=== PATIENT | male | born 1985 | race Caucasian/White ===

== ENCOUNTER 2020-10-28 05:01 | Emergency (ER) | payer OTHER, SELFPAY ==
--- NOTE | ~2020-10-28 | CT_ITS ---
EXAMINATION: CTA chest PE protocol DATE: 10/28/2020 07:30 INDICATION: Left chest pain. Hemoptysis. TECHNIQUE: Computed tomography angiography (CTA) of the chest was performed with 100 mL Omnipaque-350 intravenous contrast timed to evaluate the pulmonary arteries. Coronal maximum intensity projection 3D-reconstructions were created by the technologist. Automated exposure control and iterative reconst ruction technique were employed. The dose-length product was 387.55 mGy-cm. COMPARISON: Chest CT 03/20/2012 FINDINGS: There is mild emphysema. There is mild scarring at the lung apices. There is mild atelectas is bilaterally. There is a 6 mm nodule at minor fissure, likely benign. No pleural effusion. The hear t size is normal. No pericardial effusion. There is no pulmonary embolus. Calcified bilateral hilar l ymph nodes are consistent with old granulomatous disease. There is bridging bone at most of the endpl ates in thoracic spine with ankylosis of many of the facet joints and bridging bone between many of t he spinous processes. IMPRESSION: 1. No pulmonary embolus. 2. Mild emphysema. 3. Ankylosing spondylitis. Reviewed, dictated and finalized at location A.
[2020-10-28 05:13] VITALS: BP 131/96; PULSE 78; RESP 16; O2SAT 99
--- NOTE | 2020-10-28 05:39 | ECG_ITS ---
Measurements Intervals [place] Rate: 68 P: 45 GA: 154 QRS: 24 QRSD: 105 T: 54 QT: 376 QTc: 402 Interpretive Statements SINUS RHYTHM WITH SINUS ARRHYTHMIA DELAYED PRECORDIAL R/S TRANSITION BORDERLINE ECG Electronically Signed On 10-28-2020 6:33:19 CDT by Ike Marmolejo D.O.
--- NOTE | 2020-10-28 06:14 | ED.URI ---
HPI - URI/Sore Throat General Chief Complaint: Upper Respiratory Infection <Giovanny Singh MD - Last Filed: 10/28/20 08:37> Stated Complaint: coughing up blood <Giovanny Singh MD - Last Filed: 10/28/20 08:37> Time Seen by Provider: 10/28/20 05:30 <Giovanny Singh MD - Last Filed: 10/28/20 08:37> History of Present Illness HPI Narrative: Patient presents with of coughing up blood and left-sided chest pain. Pain for the symptoms started early this morning when he woke up. His pain is achy, constant, worse with deep inspiration, does not radiate. Reports he smokes a lot and normally has a cough but he is never coughed up blood before. Denies prior history of PE denies recent hospitalizations, recent long travel. <Giovanny Singh MD - Last Filed: 10/28/20 08:37> Related Data Home Medications: Home Medications Medication Instructions Recorded Confirmed tofacitinib [Xeljanz] 5 mg PO BID 10/28/20 <Giovanny Singh MD - Last Filed: 10/28/20 08:37> Allergies/Adverse Reactions: Allergies Allergy/AdvReac Type Severity Reaction Status Date / Time No Known Allergies Allergy Verified 10/28/20 05:16 <Giovanny Singh MD - Last Filed: 10/28/20 08:37> Review of Systems Review of Systems: CONSTITUTIONAL: Denies fever, chills, or sweats. EYES: Denies visual changes, redness, or discharge. ENT: Denies rhinorrhea, congestion, sore throat, or otalgia. CARDIOVASCULAR: Denies palpitations, or edema. RESPIRATORY: Patient reports cough, shortness of breath, hemoptysis GASTROINTESTINAL: Denies abdominal pain, nausea, vomiting, or diarrhea. GENITOURINARY: Denies dysuria or hematuria. SKIN: Denies rash or itching. MUSCULOSKELETAL: Denies back pain, joint pain, or myalgia. NEUROLOGIC: Denies headache, numbness, dizziness, or weakness. PSYCHIATRIC: Denies anxiety or depression. <Giovanny Singh MD - Last Filed: 10/28/20 08:37> All systems reviewed & are unremarkable except as noted in HPI and below <Giovanny Singh MD - Last Filed: 10/28/20 08:37> Exam Narrative: GENERAL: Well-appearing, well-nourished, and in no acute distress. HEAD: Normocephalic, atraumatic. EYES: PERRLA and EOMI. ENT: Nares clear, no rhinorrhea or epistaxis. Mucous membranes moist. NECK: Supple. No masses. No JVD CHEST: Clear to auscultation. No respiratory distress. No wheezes rales or rhonchi HEART: Regular rate and rhythm. No murmur heard. Normal peripheral pulses. ABDOMEN: Soft, nontender, nondistended, normal active bowel sounds. EXTREMITIES: Normal range of motion. No edema. SKIN: Warm, dry, no rash. NEURO: No focal deficits. Alert and oriented x3. PSYCH: Normal mood and affect. <Giovanny Singh MD - Last Filed: 10/28/20 08:37> Course Reevaluation(s) Reevaluation #1: labs with mild leukocytosis ow reassuring EKG clinically unremarkable. Patient signed out to oncoming provider pending CTPA results. <Giovanny Singh MD - Last Filed: 10/28/20 08:37> Date: 10/28/20 <Giovanny Singh MD - Last Filed: 10/28/20 08:37> Time: 07:43 <Giovanny Singh MD - Last Filed: 10/28/20 08:37> Vital Signs Vital signs: Vital Signs Pulse Rate 78 10/28/20 05:13 Respiratory Rate 16 10/28/20 05:13 Blood Pressure 131/96 H 10/28/20 05:13 Pulse Oximetry 99 10/28/20 05:13 Pulse Rate 70 10/28/20 06:21 Respiratory Rate 18 10/28/20 06:21 Blood Pressure 118/87 10/28/20 06:21 Pulse Oximetry 98 10/28/20 06:21 <Giovanny Singh MD - Last Filed: 10/28/20 08:37> Vital Signs Pulse Rate 78 10/28/20 05:13 Respiratory Rate 16 10/28/20 05:13 Blood Pressure 131/96 H 10/28/20 05:13 Pulse Oximetry 99 10/28/20 05:13 Pulse Rate 70 10/28/20 06:21 Respiratory Rate 18 10/28/20 06:21 Blood Pressure 118/87 10/28/20 06:21 Pulse Oximetry 98 10/28/20 06:21 <Maycol Shepherd MD - Last Filed: 10/28/20 08:32> MDM - URI/Sore Throat Lab Data R
[2020-10-28 06:21] VITALS: BP 118/87; PULSE 70; RESP 18; O2SAT 98
[2020-10-28 06:32] LABS: Basophils Absolute Auto 0.1 K/mm3 (0.0-0.1); Basophils Percent Auto 0.8 % (0.2-1.2); Eosinophils Absolute Auto 0.6 K/mm3 (0-0.3); Eosinophils Percent Auto 4.5 % (0-4.4); Hematocrit 47.7 % (42.0-52.0); Hemoglobin 15.8 g/dL (14.0-18.0); Immature Granulocyte Absolute 0.11 K/mm3 (0.00-0.031); Immature Granulocyte Percent A 0.9 % (0-0.5); Lymphocytes Absolute Auto 3.02 K/mm3 (0.9-3.2); Lymphocytes Percent Auto 23.8 % (18.3-44.2); Mean Corpuscular HGB Conc 33.1 g/dl (32-36); Mean Corpuscular Hemoglobin 29.7 pg (26-34); Mean Corpuscular Volume 89.7 fl (80-100); Mean Platelet Volume 9.4 fl (7.4-10.4); Monocytes Percent Auto 7.9 % (2.6-8.5); Neutrophils Absolute Auto 7.9 K/mm3 (1.3-6.7); Neutrophils Percent Auto 62.1 % (45.5-73.1); Platelet Count Result 337 k/mm3 (150-375); Red Blood Count 5.32 M/mm3 (4.6-6.20); Red Cell Distribution Width 13.7 % (11.5-14.5); White Blood Count 12.7 K/mm3 (4.5-10.0)
[2020-10-28 06:43] LABS: Prothrombin Time 12.8 Seconds (11.1-14.7)
[2020-10-28 06:47] LABS: Alanine Aminotransferase 56 U/L (4-50); Albumin Level 4.4 g/dL (3.5-5.1); Alkaline Phosphatase 139 U/L (38-126); Anion Gap 11 mmol/L (8-16); Aspartate Amino Transferase 44 U/L (17-59); Bilirubin,Total 0.7 mg/dL (0.2-1.3); Blood Urea Nitrogen 6 mg/dL (9-20); Calcium 9.2 mg/dL (8.4-10.2); Carbon Dioxide 23 mmol/L (22-30); Chloride 104 mmol/L (98-107); Estimated CRCL calculation 138 ml/min; Estimated Glomerular Filt Rate > 60; Glucose 103 mg/dL (65-110); Sodium 138 mmol/L (137-145)
[2020-10-28 06:57] LABS: Troponin I < 0.012 ng/mL (0.000-0.034)
[2020-10-28 09:07] VITALS: PULSE 64; RESP 16
== END 2020-10-28 09:11 | disposition home or self-care (01) ==
PROVIDERS: Emergency Medicine; Emergency Provider Emergency Medicine
DX: R07.9 Chest pain, unspecified (principal); J43.9 Emphysema, unspecified; M45.4 Ankylosing spondylitis of thoracic region
CPT/HCPCS: 36415; 71275; 80053; 84484; 85025; 85610; 85730; 93005; 99284; Q9967

== ENCOUNTER 2021-11-17 15:35 | Observation (INO) | payer OTHER, BC, SELFPAY ==
--- NOTE | ~2021-11-17 | CT_ITS ---
EXAMINATION: CT abdomen pelvis w con DATE: 11/17/2021 17:16 INDICATION: Ulcerative colitis TECHNIQUE: Computed tomography (CT) of the abdomen and pelvis was performed with 100 mL Omnipaque-350 intravenous contrast. Automated exposure control and iterative reconstruction technique were employe d. The dose-length product was 708.75 mGy-cm. COMPARISON: Chest CT dated 11/07/2020 FINDINGS: Unchanged small focus of pleural parenchymal scarring at the lateral basilar right lower lobe. Heart size is normal. No pericardial or pleural effusion. Liver, gallbladder, pancreas, bilateral adrenal g lands and kidneys are normal. A few splenic calcific lesions consistent with old granulomatous diseas e. Bladder is normal. Bowels including the appendix are normal with no wall thickening or obstruction . No free intraperitoneal gas or fluid. No pathologically enlarged abdominal or pelvic lymphadenopath y. Ankylosis across the bilateral sacroiliac joints, osseous fusion across multiple lower thoracic sp inous processes, bridging syndesmophytes between multiple lower thoracic and upper lumbar vertebral b odies and ankylosis across multiple lower thoracic facet and costovertebral joints all consistent wit h ankylosing spondylitis. IMPRESSION: 1. No acute intra-abdominal/pelvic process. 2. Constellation of skeletal changes as detailed above consistent with ankylosing spondylitis. Reviewed, dictated and finalized at location A. IMPRESSION: 1. No acute intra-abdominal/pelvic process. 2. Constellation of skeletal changes as detailed above consistent with ankylosi ng spondylitis.
[2021-11-17 15:40] VITALS: BP 140/95; PULSE 86; RESP 20; TEMP 36.6; O2SAT 98
--- NOTE | 2021-11-17 15:48 | ED.GENADULT ---
HPI - General Adult General Chief complaint: Unspecified Stated complaint: EXTERNAL HEMMORHOID Time Seen by Provider: 11/17/21 15:48 Source: patient Mode of arrival: ambulatory Limitations: no limitations History of Present Illness HPI narrative: 36 years old white male presents with pain at the anus started 6 days ago. History of ulcerative colitis, currently on Humira. Patient believes that he have hemorrhoids. Patient had history of intermittent rectal bleeding secondary to ulcerative colitis,he reported that the bleeding lately is different because it is fresh red bright blood ,comes mixed with the stool Related Data Home Medications Medication Instructions Recorded Confirmed tofacitinib 5 mg tablet (Xeljanz) 5 mg PO BID 10/28/20 Allergies Allergy/AdvReac Type Severity Reaction Status Date / Time No Known Allergies Allergy Verified 10/28/20 05:16 Review of Systems Review of Systems: All systems reviewed & are unremarkable except as noted in HPI and below Exam Narrative: General appearance: Well-developed, well-nourished Skin: Normal color Head: Normocephalic, nontraumatic Eyes: Clear conjunctiva ENT: Oropharynx normal, ears normal, nose normal Neck: Supple, nontender Chest and respiratory: Airway patent, no respiratory distress, no accessory muscle use Heart: Regular rate/rhythm Abdomen: Soft, nontender, no organomegaly, quiet bowel sounds anal exam showed severe tenderness and swelling at 3:00 perianal abscess, 1 mm opening externally leaking purulent discharge Vascular: Normal peripheral pulses, normal capillary refill. Musculoskeletal: Normal range of motion, nontender back Neurologic: Alert and oriented ?3, FLUME TENDER is normal as tested, no gross motor deficit Course Course Emergency Course: Perianal abscess is my concern. Repeated anal exam showed that the swelling almost gone with quite a bit of purulent discharge.. This probably explain why the CT abdomen and pelvis showed no perianal abscess. Consultations Consultation #1: Dr. Coleman Date: 11/17/21 Time: 18:26 Consultation #2: Dr. Giles Date: 11/17/21 Time: 18:26 Vital Signs Vital signs: Vital Signs Temperature 36.6 C 11/17/21 15:40 Pulse Rate 86 11/17/21 15:40 Respiratory Rate 20 11/17/21 15:40 Blood Pressure 140/95 H 11/17/21 15:40 Pulse Oximetry 98 11/17/21 15:40 Oxygen Delivery Room Air 11/17/21 15:40 Temperature 36.6 C 11/17/21 15:40 Pulse Rate 86 11/17/21 15:40 Respiratory Rate 20 11/17/21 15:40 Blood Pressure 140/95 H 11/17/21 15:40 Pulse Oximetry 98 11/17/21 15:40 Oxygen Delivery Room Air 11/17/21 15:40 Medical Decision Making Differential Diagnosis Differential Diagnosis: Hemorrhoids, perianal abscess, anal fistula secondary to ulcerative colitis Vital Signs Vital Signs: Vital Signs Temperature 36.6 C 11/17/21 15:40 Pulse Rate 86 11/17/21 15:40 Respiratory Rate 20 11/17/21 15:40 Blood Pressure 140/95 H 11/17/21 15:40 Pulse Oximetry 98 11/17/21 15:40 Oxygen Delivery Room Air 11/17/21 15:40 Temperature 36.6 C 11/17/21 15:40 Pulse Rate 86 11/17/21 15:40 Respiratory Rate 20 11/17/21 15:40 Blood Pressure 140/95 H 11/17/21 15:40 Pulse Oximetry 98 11/17/21 15:40 Oxygen Delivery Room Air 11/17/21 15:40 Lab Data Result diagrams: 11/17/21 16:33 11/17/21 16:33 Labs: Lab Results 11/17/21 11/17/21 Range/Units 16:33 16:33 WBC 17.0 H (4.5-10.0) K/mm3 RBC 5.36 (4.6-6.20) M/mm3 Hgb 16.5 (14.0-18.0) g/dL Hct 49.3 (42.0-52.0) % MCV 92.0 (80-100) fl MCH 30.8 (26-34) pg MCHC 33.5 (32-36) g/dl RD
[2021-11-17] MEDS: SODIUM CHLORIDE 0.9% IV 1,000 ML 999 ML IV CONT (16:32)
[2021-11-17 16:44] LABS: Basophils Absolute Auto 0.1 K/mm3 (0.0-0.1); Basophils Percent Auto 0.8 % (0.2-1.2); Eosinophils Absolute Auto 0.7 K/mm3 (0-0.3); Eosinophils Percent Auto 4.1 % (0-4.4); Hematocrit 49.3 % (42.0-52.0); Hemoglobin 16.5 g/dL (14.0-18.0); Immature Granulocyte Absolute 0.16 K/mm3 (0.00-0.031); Immature Granulocyte Percent A 0.9 % (0-0.5); Lymphocytes Absolute Auto 4.18 K/mm3 (0.9-3.2); Lymphocytes Percent Auto 24.6 % (18.3-44.2); Mean Corpuscular HGB Conc 33.5 g/dl (32-36); Mean Corpuscular Hemoglobin 30.8 pg (26-34); Mean Platelet Volume 9.4 fl (7.4-10.4); Monocytes Absolute Auto 1.2 K/mm3 (0.1-0.6); Monocytes Percent Auto 6.9 % (2.6-8.5); Neutrophils Absolute Auto 10.6 K/mm3 (1.3-6.7); Neutrophils Percent Auto 62.7 % (45.5-73.1); Platelet Count Result 353 k/mm3 (150-375); Red Blood Count 5.36 M/mm3 (4.6-6.20); Red Cell Distribution Width 13.3 % (11.5-14.5)
[2021-11-17 16:56] LABS: Alanine Aminotransferase 92 U/L (6-50); Alkaline Phosphatase 119 U/L (38-126); Anion Gap 16 mmol/L (8-16); Aspartate Amino Transferase 51 U/L (17-59); Bilirubin,Total 0.5 mg/dL (0.2-1.3); Blood Urea Nitrogen 14 mg/dL (9-20); Calcium 9.2 mg/dL (8.4-10.2); Carbon Dioxide 24 mmol/L (22-30); Chloride 100 mmol/L (98-107); Estimated CRCL calculation 98 ml/min; Estimated Glomerular Filt Rate > 60; Glucose 102 mg/dL (65-110); Potassium 4.1 mmol/L (3.4-5.0); Sodium 140 mmol/L (137-145)
[2021-11-17 18:35] VITALS: BP 139/78; PULSE 90; RESP 16; O2SAT 98
[2021-11-17 19:06] LABS: SARS-CoV-2 RNA PCR Negative
[2021-11-17 20:03] VITALS: BP 145/89; PULSE 74; RESP 16; O2SAT 100
--- NOTE | 2021-11-17 20:31 | PM.IMHP ---
H&P: HPI History of Present Illness Date/Time: 11/17/21 20:31 Chief Complaint: External hemorrhoid Narrative: this is a 36-year-old male patient who came to the emergency room with complaints of pain to his anus that started approximately 6 days ago. The patient thought that he had a hemorrhoid. The patient does have a history of ulcerative colitis and is on Humira. his white count was noted to be 17.0. He is found to be negative for COVID. Patient's CT of the abdomen and pelvis was read as the following . No acute intra-abdominal/pelvic process. 2. Constellation of skeletal changes as detailed above consistent with ankylosing spondylitis. ED provider consulted surgery and GI for a perirectal abscess. Patient was started on Zosyn. The patient is very agitated at this time as he is wanting a cigarette. The patient is being admitted to observation on the date of service of 11/17/2021. Review of Systems Review of Systems: See HPI All systems reviewed & are unremarkable except as noted in HPI and below Constitutional: Constitutional: Reports as per HPI and Reports no additional constitutional complaints Eyes: Eyes: Reports as per HPI and Reports no additional eye complaints ENT: Reports system reviewed and no additional complaints, except as documented and Reports Normal hearing present Cardiovascular: Cardiovascular: Reports no additional cardiovascular complaints Respiratory: Respiratory: Reports no additional respiratory complaints and Reports no additional respiratory complaints Gastrointestinal: Gastrointestinal: Reports as per HPI and Reports no additional gastrointestinal complaints Musculoskeletal: Musculoskeletal: Reports no additional musculoskeletal complaints Integumentary/Breasts: Skin/Breast: Reports system reviewed and no additional complaints, except as docu and Reports as per HPI Neurologic: Reports system reviewed and no additional complaints, except as documented, Reports as per HPI and Reports Normal hearing present Psychiatric: Psychiatric: Reports no additional psychiatric complaints and Reports as per HPI Endocrine: Endocrine: Reports no additional endocrine complaints Hematologic/Lymphatic: Hematologic/Lymphatic: Reports no additional hematologic/lymphatic complaints Allergic/Immunologic: Allergic/Immunologic: Reports no additional allergic/immunologic complaints [facility] Past Medical History Medical History (Updated 11/17/21 @ 21:01 by Leighann Vizcarra NP) Ankylosing spondylitis History of pneumothorax Tobacco abuse Surgical History Surgical History (Updated 11/17/21 @ 21:01 by Leighann Vizcarra NP) H/O eye surgery History of chest tube placement History of placement of chest tube Family History Family History (Updated 11/17/21 @ 21:03 by Leighann Vizcarra NP) Unknown Unknown family medical history Social History Social History (Updated 11/17/21 @ 21:04 by Leighann Vizcarra NP) Social History: the patient has a fiancee. He smokes a pack a cigarettes a day. He has no children. He works as a senior financial reporting accountant. He would not answer me as to how much he drinks. I do not know about any marijuana use. Code status full code Meds Home Medications and Allergies Home Medications Medication Instructions Recorded Confirmed Type tofacitinib 5 mg tablet (Xeljanz) 5 mg PO BID 10/28/20 History Allergies Allergy/AdvReac Type Severity Reaction Status Date / Time No Known Allergies Allergy Verified 10/28/20 05:16 Vital Signs Vital Signs - 24 hr 11/17/21 15:40 11/17/21 18:35 11/17/21 20:03 Temperature 36.6 C Pulse Rate 86 90 74 Respiratory Rate 20 16 16 Blood Pressure 140/95 H 139/78 145/89 H Pulse Oximetry 98 98 100 Oxygen Delivery Room Air Exam Const: General: cooperative, healthy appearing, comfortable, no acute distress, well developed, awake and Physically active Nutritional Appearance: average body habitus and well nourished [place]
[2021-11-17] MEDS: SODIUM CHLORIDE 0.9% IV 1,000 ML 125 ML IV CONT (20:41)
[2021-11-17] MEDS: ALPRAZolam (*CRX) 0.5 MG TABLET PO (20:43)
[2021-11-17 21:51] VITALS: PULSE 74; RESP 16; O2SAT 100
[2021-11-17 22:06] VITALS: BP 127/73; PULSE 69; RESP 20; TEMP 36.5; O2SAT 98
[2021-11-17 22:07] VITALS: BMI 27.8
[2021-11-18] MEDS: PIPERACILLIN/TAZOBACTAM SOD 4.5 GM in SODIUM CHLORIDE 0.9% IV 100 ML 200 ML IVPB ×2 (00:11→05:38)
[2021-11-18] MEDS: ALPRAZolam (*CRX) 0.5 MG TABLET PO (00:26)
[2021-11-18] MEDS: SODIUM CHLORIDE 0.9% IV 1,000 ML 125 ML IV CONT (05:38)
--- NOTE | 2021-11-18 16:56 | PM.EVENT ---
Event Note Event Note Event Note: Subjective: 36 yo male with medical history of ulcerative colitis on humira presented to the ED for evaluation of anal pain. He was found to have perianal abscess. Patient was started on IV Zosyn in ED that was continued on admission. General Surgery and GI were consulted. Nursing staff contacted me and reported that the patient upset that he was not having surgery. He was verbally aggressive with nursing staff and using jose juan language. Dr. Coleman reportedly was contacted about the patient having surgery, per nursing, and he stated this was not necessary. The patient reportedly became very upset and left AMA at 0919 on 11/18/21. See nursing documentation for further information. Objective: See below for vital signs and laboratory data. PE: I did not physically assess the patient prior to him leaving AMA. Assessment: 1. perianal abscess 2. Ulcerative colitis, chronic 3. Tobacco dependence Plan: Patient left the hospital AMA. AMA paperwork signed. Oral antibiotics were not initiated as he left prior to be evaluated. Wound culture results were not available at the time of the patient's departure. Vital Signs 11/17/21 15:40 11/17/21 18:35 11/17/21 20:03 11/17/21 21:51 11/17/21 22:06 11/17/21 22:07 11/18/21 06:00 Weight 95.5 kg 93.3 kg Height 1.83 m 1.83 m BMI 27.8 Temp 97.9 F 97.7 F Temp Source Temporal Artery Scan Pulse 86 90 74 74 69 Pulse Source Monitor BP 140/95 H 139/78 145/89 H 127/73 Position Supine Supine Respiration 20 16 16 16 20 Pulse Oximetry (%) 98 98 100 100 98 Results Labs CBC & Chem 7: 11/17/21 16:33 11/17/21 16:[address] scan - abdomen: Radiologist's impression: FINDINGS: Unchanged small focus of pleural parenchymal scarring at the lateral basilar right lower lobe. Heart size is normal. No pericardial or pleural effusion. Liver, gallbladder, pancreas, bilateral adrenal glands and kidneys are normal. A few splenic calcific lesions consistent with old granulomatous disease. Bladder is normal. Bowels including the appendix are normal with no wall thickening or obstruction. No free intraperitoneal gas or fluid. No pathologically enlarged abdominal or pelvic lymphadenopathy. Ankylosis across the bilateral sacroiliac joints, osseous fusion across multiple lower thoracic spinous processes, bridging syndesmophytes between multiple lower thoracic and upper lumbar vertebral bodies and ankylosis across multiple lower thoracic facet and costovertebral joints all consistent with ankylosing spondylitis. IMPRESSION: 1. No acute intra-abdominal/pelvic process. 2. Constellation of skeletal changes as detailed above consistent with ankylosing spondylitis.
== END 2021-11-18 09:20 | disposition left against medical advice (07) ==
LOC: ANHED 18:29 → ANH2MED 19:56
PROVIDERS: Admitting Provider Internal Medicine; Emergency Provider Emergency Medicine; Visit Provider Internal Medicine
DX: K61.0 Anal abscess (principal); K51.90 Ulcerative colitis, unspecified, without complications; F17.210 Nicotine dependence, cigarettes, uncomplicated; M45.9 Ankylosing spondylitis of unspecified sites in spine; Z53.29 Procedure and treatment not carried out because of patient's decision for other reasons; Z20.822 Contact with and (suspected) exposure to COVID-19; Z79.899 Other long term (current) drug therapy
CPT/HCPCS: 36415; 74177; 80053; 85025; 87070; 87205; 96361; 96365; 96366; 99285; A9270; C9803; G0378; J0131; J2543; J7030; Q9967; U0003; U0005